=== PATIENT | female | born 1940 | race Hispanic/Latino ===

== ENCOUNTER 2024-02-16 12:37 | Observation (INO) | payer MEDICARE ==
[~2024-02-16] VITALS: Ht 160 cm; Wt 67.4 kg
[2024-02-16] VITALS (8 sets, daily range): BP systolic 138–167; BP diastolic 50–62; PULSE 59–72; RESP 17–18; TEMP 97.6–98.4; O2SAT 96–100
[~2024-02-16 12:37] MED LIST: AMLODIPINE BESYL5 MG PO; ATORVASTATIN CA20 MG PO; AZITHROMYCIN250 MG PO; BETIMOL5 M1 OP; CETIRIZINE HCL10 MG PO; CHOLESTYRAMINE L4 GM PO; DULERA 100 MCG/13 GM IH; FLONASE ALLERG9.9 ML INH; FLUOCINONIDE15 G1 TOP; MUCINEX DM ER1 EACH PO; NASAL MIST126 ML; OMEPRAZOLE40 MG PO; ONDANSETRON ODT4 MG PO; PREDNISONE10 MG PO; PREDNISONE20 MG PO; PROAIR DIGIHAL90 MCG IH; VENTOLIN HFA18 GM INH
[2024-02-16 14:22] LABS: BASOPHILS % 0.3 % (0.0-1.0); HEMATOCRIT 34.6 % (34.2-44.1); HEMOGLOBIN 12.1 g/dL (12.0-16.0); LYMPHOCYTES # (AUTO) 0.6 (1.0-3.2); LYMPHOCYTES % 15.9 % (18.0-39.1); MEAN CORPUSCULAR VOLUME 88.7 fL (81-99); MONOCYTES # (AUTO) 0.3 (0.2-0.8); MONOCYTES % 7.5 % (4.4-11.3); NEUTROPHILS # (AUTO) 2.7 (2.1-6.9); PLATELET COUNT 211 x10e3/uL (140-360); RED CELL DISTRIBUTION WIDTH 12.7 % (11.7-14.4); WHITE BLOOD COUNT 3.58 x10e3/uL (4.8-10.8)
[2024-02-16 14:37] LABS: ALANINE AMINOTRANSFERASE 24 IU/L (0-55); ALBUMIN 3.9 g/dL (3.5-5.0); ALBUMIN/GLOBULIN RATIO 1.1 (0.8-2.0); ALKALINE PHOSPHATASE 107 IU/L (40-150); ANION GAP 13.9 mmol/L (8-16); BILIRUBIN,TOTAL 0.5 mg/dL (0.2-1.2); BLOOD UREA NITROGEN < 5 mg/dL (7-26); CALCIUM 8.8 mg/dL (8.4-10.2); CARBON DIOXIDE 23 mmol/L (22-29); CHLORIDE 90 mmol/L (98-107); CREATININE, SERUM 0.67 mg/dL (0.57-1.11); EST GLOMERULAR FILTRATION RATE 86 ML/MIN (>=60); GLUCOSE 124 mg/dL (74-118); SODIUM 124 mmol/L (136-145); TOTAL PROTEIN 7.4 g/dL (6.5-8.1)
[2024-02-16 14:40] LABS: BUN/CREATININE RATIO 7 (6-25); POTASSIUM 2.9 mmol/L (3.5-5.1)
[2024-02-16] MEDS: SODIUM CHLORIDE 0.9% 500ML 500 ML IV STA (14:40)
[2024-02-16] MEDS: ONDANSETRON HCL INJ 2MG/ML 2ML 2 MG/ML VIAL IV STA (14:40)
[2024-02-16] MEDS ORDERED: ONDANSETRON HCL INJ 2MG/ML 2ML 2 MG/ML VIAL IV PRN ×2 (15:15→15:45)
[2024-02-16] MEDS: POTASSIUM CHLORIDE 20 MEQ TAB CR PO ONE (15:43)
[2024-02-16] MEDS ORDERED: GUAIFENESIN 600MG/DEXTROMETHORPHAN 30MG TABSR PO PRN (15:45)
[2024-02-16] MEDS ORDERED: HYDRALAZINE HCL 20 MG/ML VIAL IV PRN (15:45)
[2024-02-16] MEDS: POTASSIUM CHLORIDE 10MEQ/100ML 200 ML IV ONE (15:53)
[2024-02-16] MEDS ORDERED: SODIUM CHLORIDE 0.9% 1000ML 1,000 ML ONE (16:03)
[2024-02-16] MEDS: SODIUM CHLORIDE 0.9% 1000ML 1,000 ML IV SCH (16:15)
[2024-02-16] MEDS: DULERA INH SCH (19:00)
[2024-02-16] MEDS: ACETAMINOPHEN 325 MG TAB PO PRN (19:46)
[2024-02-17] VITALS (7 sets, daily range): BP systolic 104–152; BP diastolic 50–63; PULSE 54–74; RESP 18–19; TEMP 97.6–98.4; O2SAT 97–100
[2024-02-17 05:54] LABS: EOSINOPHILS % 0.9 % (0.0-6.0); HEMATOCRIT 33.6 % (34.2-44.1); HEMOGLOBIN 11.1 g/dL (12.0-16.0); LYMPHOCYTES # (AUTO) 0.8 (1.0-3.2); LYMPHOCYTES % 34.9 % (18.0-39.1); MEAN CORPUSCULAR HEMOGLOBIN 30.3 pg (28-32); MEAN CORPUSCULAR VOLUME 91.8 fL (81-99); MONOCYTES # (AUTO) 0.3 (0.2-0.8); MONOCYTES % 13.2 % (4.4-11.3); NEUTROPHILS # (AUTO) 1.2 (2.1-6.9); NEUTROPHILS % 50.6 % (38.7-80.0); PLATELET COUNT 176 x10e3/uL (140-360); RED BLOOD COUNT 3.66 x10e6/uL (3.6-5.1); RED CELL DISTRIBUTION WIDTH 12.8 % (11.7-14.4); WHITE BLOOD COUNT 2.35 x10e3/uL (4.8-10.8)
[2024-02-17 06:21] LABS: ALANINE AMINOTRANSFERASE 20 IU/L (0-55); ALBUMIN 3.3 g/dL (3.5-5.0); ALBUMIN/GLOBULIN RATIO 1.2 (0.8-2.0); ALKALINE PHOSPHATASE 87 IU/L (40-150); BILIRUBIN,TOTAL 0.5 mg/dL (0.2-1.2); CALCIUM 8.8 mg/dL (8.4-10.2); GLUCOSE 87 mg/dL (74-118); TOTAL PROTEIN 6.1 g/dL (6.5-8.1)
[2024-02-17 06:48] LABS: ANION GAP 9.8 mmol/L (8-16); BLOOD UREA NITROGEN < 5 mg/dL (7-26); CARBON DIOXIDE 25 mmol/L (22-29); CHLORIDE 101 mmol/L (98-107); CREATININE, SERUM 0.65 mg/dL (0.57-1.11); POTASSIUM 3.8 mmol/L (3.5-5.1); SODIUM 132 mmol/L (136-145)
[2024-02-17 06:50] LABS: BUN/CREATININE RATIO 8 (6-25); EST GLOMERULAR FILTRATION RATE 87 ML/MIN (>=60)
[2024-02-17] MEDS ORDERED: NON-FORMULARY MEDICATION (Fluticasone Propionate* (Flonase Allergy Relief*) 2 EACH) INH SCH (09:00)
[2024-02-17] MEDS ORDERED: TIMOLOL OP SCH (09:00)
[2024-02-17] MEDS: TIMOLOL MALEATE 0.25% OPTHLAMIC DROPS 5 ML OP SCH (10:58)
[2024-02-17] MEDS: FLUTICASONE PROPIONATE NASAL SPRAY NS SCH (11:00)
[2024-02-17] MEDS: ALBUTEROL 90 MCG/ACT INHALER INH PRN (11:01)
[2024-02-17] MEDS: AMLODIPINE BESYLATE 5 MG TAB PO SCH (11:02)
[2024-02-17] MEDS: LORATADINE 10 MG TAB PO SCH (11:02)
[2024-02-17] MEDS: PANTOPRAZOLE SOD 40 MG TABEC PO SCH (11:02)
[2024-02-17] MEDS: ATORVASTATIN 20 MG TAB PO SCH (11:02)
[2024-02-17] MEDS ORDERED: ONDANSETRON HCL 4 MG ORAL DISINTEGRATING TAB PO PRN ×2 (15:00→15:15)
[2024-02-17] MEDS ORDERED: ENOXAPARIN SOD INJ 40 MG/0.4 ML SYR SC SCH (17:00)
== END 2024-02-17 14:54 | disposition home or self-care (01) ==
LOC: ER 13:14 → ERHOLD 15:06 → MED/SURG2 16:45
PROVIDERS: ADMIT Internal Medicine; ATTEND Internal Medicine
DX: E87.1 Hypo-osmolality and hyponatremia (principal); E87.6 Hypokalemia; E86.0 Dehydration; R11.2 Nausea with vomiting, unspecified; R19.7 Diarrhea, unspecified; U07.1 COVID-19; I10 Essential (primary) hypertension; E78.00 Pure hypercholesterolemia, unspecified; K21.9 Gastro-esophageal reflux disease without esophagitis; M19.91 Primary osteoarthritis, unspecified site; Z86.16 Personal history of COVID-19; Z79.899 Other long term (current) drug therapy
CPT/HCPCS: 36415 ×2; 74176; 80053 ×2; 83735; 85025 ×2; 94799 ×2; 99284; G0378 ×2; J2405; J3480; J7030; J7040; S0164

== ENCOUNTER 2024-12-25 18:12 | Emergency (ER) | payer MEDICARE ==
[~2024-12-25] VITALS: Ht 157.5 cm; Wt 63.5 kg
[~2024-12-25 18:12] MED LIST changes: +NAPROXEN250 MG PO
[2024-12-25] MEDS: ONDANSETRON HCL INJ 2MG/ML 2ML 2 MG/ML VIAL IV STA (19:23)
[2024-12-25] MEDS: SODIUM CHLORIDE 0.9% 1000ML 1,000 ML IV STA (19:23)
[2024-12-25 19:30] LABS: BASOPHILS % 0.4 % (0.0-1.0); EOSINOPHILS # (AUTO) 0.1 (0.0-0.4); EOSINOPHILS % 1.6 % (0.0-6.0); HEMATOCRIT 32.5 % (34.2-44.1); HEMOGLOBIN 11.1 g/dL (12.0-16.0); LYMPHOCYTES # (AUTO) 0.8 (1.0-3.2); LYMPHOCYTES % 16.1 % (18.0-39.1); MEAN CORPUSCULAR HEMOGLOBIN 30.9 pg (28-32); MEAN CORPUSCULAR HGB CONC 34.2 g/dL (31-35); MEAN CORPUSCULAR VOLUME 90.5 fL (81-99); MONOCYTES # (AUTO) 0.4 (0.2-0.8); MONOCYTES % 8.4 % (4.4-11.3); NEUTROPHILS # (AUTO) 3.7 (2.1-6.9); NEUTROPHILS % 73.3 % (38.7-80.0); PLATELET COUNT 238 x10e3/uL (140-360); RED BLOOD COUNT 3.59 x10e6/uL (3.6-5.1); RED CELL DISTRIBUTION WIDTH 13.5 % (11.7-14.4); WHITE BLOOD COUNT 5.02 x10e3/uL (4.8-10.8)
[2024-12-25 19:55] LABS: ALBUMIN 3.6 g/dL (3.5-5.0); ANION GAP 14.1 mmol/L (8-16); BILIRUBIN,TOTAL 0.3 mg/dL (0.2-1.2); CALCIUM 8.9 mg/dL (8.4-10.2); CREATININE, SERUM 0.7 mg/dL (0.57-1.11); POTASSIUM 3.1 mmol/L (3.5-5.1); TOTAL PROTEIN 7.1 g/dL (6.5-8.1)
[2024-12-25 20:00] LABS: TROPONIN I 0.016 ng/mL (0-0.300)
[2024-12-25] MEDS ORDERED: IOPAMIDOL 370 MG/ML 100 ML INFUS..BTL INJ ONE (20:03)
[2024-12-25 20:06] LABS: CLARITY,URINE SL CLOUDY (CLEAR); COLOR,URINE YELLOW (YELLOW); GLUCOSE, URINE NEGATIVE (NEGATIVE); KETONES,URINE NEGATIVE (NEGATIVE); LEUKOCYTE ESTERASE ,URINE SMALL (NEGATIVE); NITRITE,URINE NEGATIVE (NEGATIVE); PH,URINE 6.5 (5 - 7); PROTEIN,URINE DIPSTICK NEGATIVE (NEGATIVE)
[2024-12-25 20:07] LABS: BILIRUBIN,URINE NEGATIVE (NEGATIVE); URINE UROBILINOGEN 0.2 mg/dL (0.2 - 1)
[2024-12-25 20:18] LABS: EPITHELIAL CELLS,URINE RARE /LPF; RBC,URINE 0-5 /HPF (0-5)
[2024-12-25 22:45] VITALS: PULSE 65; RESP 16; TEMP 98.3; O2SAT 99
[2024-12-25] MEDS ORDERED: PROTONIX20 MG PO (23:00)
[2024-12-25] MEDS ORDERED: ONDANSETRON ODT4 MG PO (23:00)
== END 2024-12-25 23:17 | disposition home or self-care (01) ==
LOC: ER 18:21 → MERGE 18:21 → ER 23:17
DX: R19.7 Diarrhea, unspecified (principal); E87.1 Hypo-osmolality and hyponatremia; R11.2 Nausea with vomiting, unspecified; R10.13 Epigastric pain; I10 Essential (primary) hypertension; R94.31 Abnormal electrocardiogram [ECG] [EKG]
CPT/HCPCS: 36415; 74177; 80053; 81001; 82550; 83690; 84484; 85025; 93005; 99284; J7030; Q9967; J2405

== ENCOUNTER 2025-04-13 14:25 | Emergency (ER) | payer MEDICARE ==
[~2025-04-13] VITALS: Ht 157.5 cm; Wt 63.5 kg
[~2025-04-13 14:25] MED LIST changes: +PROTONIX20 MG PO
[2025-04-13 15:28] VITALS: PULSE 70; RESP 17; TEMP 98.3; O2SAT 100
== END 2025-04-13 16:25 | disposition short-term general hospital (02) ==
LOC: ER 16:25
DX: R19.7 Diarrhea, unspecified (principal)